=== PATIENT | male | born 1975 | race Two or more races ===

== ENCOUNTER 2016-10-22 12:31 | Inpatient (IN) | payer BC ==
--- NOTE | ~2016-10-22 | OP ---
Record Of Operation [facility] [address] [place]. [address] NAME: LEIGH MASSEY : 71 STATUS : ADM IN PAT#: [id number] AGE: 40 ADM/REG DATE : 10/22/16 MR#: [id number] REPORT SERV DATE: 10/25/16 DICTATED BY: HAMMAD PADGETT DATE: 10/24/16 REPORT STATUS : Draft TRANSCRIBED BY: MODL DATE: 10/24/16 DATE OF PROCEDURE: 10/24/2016 PREOPERATIVE DIAGNOSIS: Pulmonary embolism on anticoagulation. POSTOPERATIVE DIAGNOSIS: Pulmonary embolism on anticoagulation. PROCEDURE: Inferior vena cavogram with IVC filter placement. SURGEON: Hammad Padgett M.D. ANESTHESIA: Local with sedation. COMPLICATIONS: None. BLOOD LOSS: Minimal. HISTORY: The patient is a 40-year-old male admitted with a left lower extremity DVT. He was placed on therapeutic anticoagulation. He subsequently developed chest pain and CT scan noted pulmonary embolus. Based on this, it was felt he developed a new pulmonary embolus on therapeutic anticoagulation and is felt to be candidate for IVC filter placement. Risks, benefits, and alternatives were discussed in detail with the patient and , they expressed understanding and desired to proceed. DESCRIPTION OF PROCEDURE: The patient was taken to the operating room and placed in the supine position. He was given IV sedation without complication. Both groins were prepped and draped in sterile fashion. Ultrasound was used to identify common femoral vein on the right. Patency was confirmed with compression. 1% lidocaine was infiltrated in the skin and subcutaneous tissues. Under ultrasound guidance, an 18-gauge needle was placed into the common femoral vein. Wire was passed to the IVC which confirmed with fluoroscopy. The needle was removed. The sheath and dilator for the Ju filter were passed over the wire to the IVC. Vena cavogram was performed, it showed a normal sized vena cava without thrombus. The renal veins were identified. The sheath was passed up to just below the renal veins. The dilator was removed and the Ju filter passed to the distal aspect of the sheath. The filter was deployed beneath the renal veins without difficulty. There was no tilting. The struts were fully deployed. The sheath was then removed and pressure held, hemostasis was achieved. The patient tolerated the procedure well and will be taken to recovery room and back to his room for continued care. DIONE/KATINA Hammad Padgett M.D. Record Of Operation [address] [place]. [address] NAME: LEIGH MASSEY : 71 STATUS : ADM IN PAT#: [id number] AGE: 40 ADM/REG DATE : 10/22/16 MR#: [id number] REPORT SERV DATE: 10/25/16 DICTATED BY: HAMMAD PADGETT DATE: 10/24/16 REPORT STATUS : Draft TRANSCRIBED BY: KATINA DATE: 10/24/16 / [id number] CC: MD Yessy Horn
--- NOTE | ~2016-10-22 | CN ---
Consultation Report [facility] [address] [place]. [address] NAME: LEIGH MASSEY : 71 STATUS : ADM IN PAT#: [id number] AGE: 40 ADM/REG DATE : 10/22/16 MR#: [id number] REPORT SERV DATE: 10/25/16 DICTATED BY: ROYCE POLLOCK DATE: 10/25/16 REPORT STATUS : Draft TRANSCRIBED BY: MODEdmund DATE: 10/25/16 CONSULT DATE OF CONSULTATION: This is a patient admitted 10/22/2016, after he had a left lower extremity DVT discovered at [facility]. He had a subsequent CTA of the chest performed on 10/24/2016, showing moderate size pulmonary embolism in both lungs. The patient is currently on Xarelto. He did have to have an IVC filter placed by vascular surgery specifically Dr. Albin Padgett on 10/24/2016. We were consulted because of hemoptysis that really started today although he did a slight bout of it a couple of days ago. The amount that he is coughing up is 4 or 5 episodes of small volume hemoptysis, enough to fit in the palm of the hand. Hemoglobins really have not dropped all that much. His pulmonary embolism is an unprovoked event. No long car rides, trauma, history of cancers in him or family. He has no known clotting factors. He has no known hypercoagulable state. He does complain of some difficulty getting a full breath and he has a little bit of pleuritic chest pain on the right side. He was getting ready to be discharged today when he coughed up some blood. REVIEW OF SYSTEMS: No fevers, chills, or sweats. No syncope or dizziness. PAST MEDICAL HISTORY: Really unremarkable. ALLERGIES: FLEXERIL. HOME MEDICATIONS: None. PAST SURGICAL HISTORY: Skin biopsies and left groin hernia repair. SOCIAL HISTORY: No tobacco. Occasional alcohol but rare. . He does have kids. FAMILY HISTORY: Mother had cancer of the GI tract. Father and siblings are healthy. PHYSICAL EXAMINATION: VITAL SIGNS: Vitals per nursing flow sheet. GENERAL: No acute distress. Alert. NEUROLOGIC: GCS 15. HEENT: ENT normocephalic, atraumatic. Pupils are equal. NECK: Trachea midline. No palpable lymph nodes or masses. HEART: Regular rate and rhythm. No murmurs. LUNGS: Clear to auscultation bilaterally. No wheezes, rales, or rubs. Consultation Report [facility] [address]. [address] NAME: LEIGH MASSEY : 71 STATUS : ADM IN PAT#: [id number] AGE: 40 ADM/REG DATE : 10/22/16 MR#: [id number] REPORT SERV DATE: 10/25/16 DICTATED BY: ROYCE POLLOCK DATE: 10/25/16 REPORT STATUS : Draft TRANSCRIBED BY: MODEdmund DATE: 10/25/16 GI: Soft, nontender, and nondistended. EXTREMITIES: No edema, cyanosis, or clubbing. LABS: Radiology studies reviewed with my own interpretation. ASSESSMENT AND PLAN: 1. Acute unprovoked VTE-pulmonary embolism and left lower extremity DVT. 2. Hemoptysis-likely pulmonary infarction of the right lower lobe. 3. Pleuritic chest pain. Continue Xarelto for now as long as he is not having massive hemoptysis. We will watch overnight, get H and H in the morning. If the hemoptysis settles down or is minimal, then likely he will be able to be discharged. They did order factor V Leiden and prothrombin 2020 mutation. This ought to be followed up on. Protein S and protein C levels were not low on this admission but have anticoagulation for a minimum of 3 months to be re-evaluated for longer-term use or not. He will have to follow up with outpatient vascular surgery with Dr. Padgett to see about getting this IVC filter removed at some point in the future. CEP/MODL Royce Pollock DO / [id number] CC: MD Yessy Horn
--- NOTE | ~2016-10-22 | DS ---
Discharge Summary [facility] [address] [place]. [address] NAME: LEIGH MASSEY : 71 STATUS : ADM IN [facility]#: [id number] AGE: 40 ADM/REG DATE : 10/22/16 MR#: [id number] REPORT SERV DATE: 10/26/16 DICTATED BY: LEIGH STOVALL DATE: 10/25/16 REPORT STATUS : Draft TRANSCRIBED BY: MODL DATE: 10/25/16 ADMISSION DATE: 10/22/2016 DISCHARGE DATE: The patient is a 40-year-old male with no significant medical history, who presented to the emergency room with complaints of leg pain, diagnosed with a DVT, and referred to the emergency room. Upon presentation to the emergency room, the patient was admitted under Hospitalist Service and was started on therapeutic anticoagulation with Lovenox. The patient initially remained hemodynamically stable; however, during his hospital course, on the night of admission, the patient developed severe chest pain with tachycardia, prompting an emergent CTA, which confirmed bilateral pulmonary embolism. Given this finding, Vascular Surgery was consulted. For further details, please refer to op note dictated by Dr. Padgett on 10/25/2016. Status post IVC filter placement. The patient has remained hemodynamically stable on heparin drip. He is being transitioned to Xarelto. Given his hemodynamic stability clearance from Vascular Surgery, the patient will be discharged home to follow up with his primary care physician. Plan has been discussed with the patient, who voices understanding and is agreeable with this plan. DISCHARGE DIAGNOSES: 1. Bilateral pulmonary embolism. 2. Left lower extremity deep venous thrombosis. DISCHARGE EXAMINATION: VITAL SIGNS: Blood pressure 131/70, pulse of 88, respirations 22, O2 saturation 96% on nasal cannula. GENERAL: The patient is lying in bed, in no acute distress, appears stated age. HEENT: Normocephalic, atraumatic. Extraocular motors intact. Moist oral mucosa. Anicteric sclerae. No conjunctival pallor. NECK: Trachea midline and symmetric. No JVD. No thyromegaly. No lymphadenopathy palpated. CHEST: Nontender to palpation. No scars noted. CARDIOVASCULAR: Regular rate and rhythm. S1, S2. No murmurs, rubs, or gallops. LUNGS: Clear to auscultation bilaterally. No added breath sounds. ABDOMEN: Soft, flat, nontender, nondistended. No masses palpated. EXTREMITIES: No cyanosis, no clubbing, no edema. NEURO: Alert and oriented x3. No focal deficits appreciated. DISCHARGE MEDICATIONS: Xarelto 15 mg b.i.d. for 21 days, after which the patient will be transitioned to Xarelto 20 mg p.o. daily. DISPOSITION: The patient will be discharged home to follow up with primary care physician and Vascular Surgery. ACTIVITY: As tolerated. DIET: Regular diet. Discharge Summary [address] [address] NAME: LEIGH MASSEY : 71 STATUS : ADM IN PAT#: [id number] AGE: 40 ADM/REG DATE : 10/22/16 MR#: [id number] REPORT SERV DATE: 10/26/16 DICTATED BY: LEIGH STOVALL DATE: 10/25/16 REPORT STATUS : Draft TRANSCRIBED BY: KATINA DATE: 10/25/16 Greater than 30 minutes were spent coordinating care, planning discharge, providing counseling, dictation of note, medication reconciliation. LUCERO/KATINA Leigh Stovall MD / [id number] CC: MD Yessy Horn
--- NOTE | ~2016-10-22 | HP ---
History And Physical [place] [address] [place] [place]. [address] NAME: LEIGH MASSEY : 71 STATUS : ADM IN PAT#: [id number] AGE: 40 ADM/REG DATE : 10/22/16 MR#: [id number] REPORT SERV DATE: 10/22/16 DICTATED BY: MARTY BOWDEN DATE: 10/22/16 REPORT STATUS : Draft TRANSCRIBED BY: MODL DATE: 10/22/16 DATE OF ADMISSION: 10/22/2016 IDENTIFYING DATA: A 40-year-old white male whose PCP is Dr. Yessy Rae. CHIEF COMPLAINT: Deep vein thrombosis, left leg. HISTORY OF PRESENT ILLNESS: This history of present illness is obtained by talking directly with the patient as well as talking on the phone with Dr. Yessy Rae and reviewing the data she sent from [facility]. Seven days ago, the patient felt like he had an uncomfortable sensation behind his popliteal on the left side. He thought he might have pulled a muscle playing soccer the day before, but he does not remember any injury while playing soccer. The pain has gradually gotten worse. There has been more redness, heat, and sensitivity that worsened when he would stand. The pain began to extend down into the left calf and ankle. He went to see his primary care provider, and she sent him to [facility]. Their venous Doppler of that left leg revealed a deep vein thrombosis in the mid femoral vein extending to the popliteal vein and the posterior tibial vein stenosis. No cyst and no fluid collections. She called and asked for us to admit him to the hospital. The patient has no history of trauma to that leg. He has not been sedentary. He has had no long trips. He has no cancer history. He is on no prescriptions. He has no history of congestive heart failure. He has no family history of clotting disorder. He takes over-the counter vitamin C. He has never had a clot himself in the past. REVIEW OF SYSTEMS: On review of systems, he has gained about 15 pounds in the last year. He has occasional sweating episodes. He has had some nausea and he did vomit last Saturday. He states he had some dark gold colored urine a few days ago, but then it got special education educational assistant when he took more fluids. He has no fever, cough, nasal congestion, sore throat, chest pain, shortness of breath, abdominal pain, diarrhea, rectal bleeding, melena, dysuria, urinary hesitancy, nocturia, rash, tick bites, change in vision, and change in hearing. ALLERGIES: HE STATES HE IS ALLERGIC TO FLEXERIL, WHICH GIVES HIM HIVES AND FLU SHOT GAVE HIM FEVER. PAST MEDICAL HISTORY: He denies any history of diabetes, hypertension, asthma, COPD, heart disease, stroke, seizure, peptic ulcer, biliary tract disease, liver disease, chronic kidney disease, kidney stones, thyroid disease, cancer, or sleep apnea. The patient has a history of skin lesions on his right arm that were biopsied. He states they were fatty tissue. MEDICATIONS: No prescriptions. He does take some vitamin C. History And Physical [address] [address] NAME: LEIGH MASSEY : 71 STATUS : ADM IN [facility]#: [id number] AGE: 40 ADM/REG DATE : 10/22/16 MR#: [id number] REPORT SERV DATE: 10/22/16 DICTATED BY: MARTY BOWDEN DATE: 10/22/16 REPORT STATUS : Draft TRANSCRIBED BY: KATINA DATE: 10/22/16 SURGICAL HISTORY: He had skin biopsies and he had a left groin hernia repair. SOCIAL HISTORY: He denies tobacco intake. He states his alcohol intake maybe a sip per year. He has worked in the [employer] business. He works for [employer]. He is now involved in real estate. He is . He walks without any assistive device. FAMILY HISTORY: Mother reportedly had some type of cancer of GI tract. He does not know the details. Father and siblings are healthy. DIAGNOSTIC DATA: All that is available right now is that venous Doppler described above showing deep vein thrombosis in the left mid femoral, popliteal, and posterior tibial vein. PHYSICAL EXAMINATION: VITAL SIGNS: Temperature is 98.2, pulse 80, respirations 19, blood pressure 118/81, and O2 saturation 97% on room air. BMI is 24.9. He is 6 foot 5. GENERAL: Well-developed male, who appears at this time in no acute distress. HEENT: Head is atraumatic. Pupils are equal, round, and reactive to light. Extraocular motions are intact. No scleral icterus noted. Ears, externally unremarkable. No inflammatory changes. Normal hearing bilaterally. Nose, noninflamed externally. Septum midline. Nares patent. Mouth, moist. Good gag. No redness of the throat, gums, or lips. NECK: Supple. No lymph node or thyroid enlargement. The carotids have good pulses. No bruits. LUNGS: Clear. Good air flow. No wheezes, no rhonchi. Normal respiratory effort. HEART: Regular rate and rhythm without murmur, gallop, click, or rub. ABDOMEN: Bowel sounds positive. Soft, flat, nondistended, nontender. No masses. No organomegaly. I can feel the tip of the left spleen when he takes a deep breath. No bruits noted. EXTREMITIES: Warm. Good pulses. No clubbing. No cyanosis. He has edema of the left calf. He has erythema and increased warmth in the left calf and probably in the left distal thigh. He has some mild tenderness to palpation along the inner aspect of the left calf. Negative Homans sign. No other actively inflamed skin or joints. NEUROLOGIC: Alert, oriented, and cooperative with grossly normal mentation and speech as well as motor and sensory and gait. Cranial nerves 2 through 12 are normal. GENITORECTAL: Reveals normal external male genitalia. No testicular masses. No hernias. No lymphadenopathy in the groin. ASSESSMENT: 1. Acute unprovoked deep vein thrombosis, left lower extremity. 2. Negative past medical history, otherwise. PLAN: 1. Admit to the hospital on cardiac telemetry. 2. We will draw hypercoagulable labs because of his young age (less than age 45) and unprovoked DVT including protein S, protein C, antithrombin 3, factor V laden, prothrombin gene mutation [id number] and then after that start Lovenox 1 mg/kg subcu every 12 hours. 3. I talked with the patient at length about the options of warfarin versus the novel oral History And Physical [place] [address] [place]. [address] NAME: LEIGH MASSEY : 71 STATUS : ADM IN [facility]#: [id number] AGE: 40 ADM/REG DATE : 10/22/16 MR#: [id number] REPORT SERV DATE: 10/22/16 DICTATED BY: MARTY BOWDEN DATE: 10/22/16 REPORT STATUS : Draft TRANSCRIBED BY: MODEdmund DATE: 10/22/16 anticoagulants and the advantages and disadvantages of them, and we will check the co- pay for him as well. We are also going to get a urinalysis in this patient because he had that darker urine recently, and if I did not mention already, we are going to get a CT scan of his chest, abdomen, pelvis as a malignancy screen. We will get a stool guaiac. GALILEO/KATINA Marty Bowden M.D. / [id number] CC: Wolf Stearns
--- NOTE | ~2016-10-22 | DS ---
Discharge Summary [place] [id number] [place]. [address] NAME: LEIGH MASSEY : 71 STATUS : DIS IN PAT#: [id number] AGE: 40 ADM/REG DATE : 10/22/16 MR#: [id number] REPORT SERV DATE: 10/27/16 DICTATED BY: LEIGH STOVALL DATE: 10/27/16 REPORT STATUS : Draft TRANSCRIBED BY: MODEdmund DATE: 10/27/16 ADMISSION DATE: 10/22/2016 DISCHARGE DATE: 10/27/2016 ADDENDUM: This dictation is in addition to discharge summary dictated by nj on 10/25/2016, work #[id number]. The patient was discharged was not on 10/25/2016. At the time of discharge, the patient developed hemoptysis prompting Pulmonary consult. Dr. Pollock saw the patient. Per his evaluation, no need for any active intervention. His symptoms are most likely related secondary to his clot burden. Plan is for the patient to follow up with Pulmonary outpatient setting in about two to three weeks and also follow with Vascular Surgery. The patient has remained hemodynamically stable throughout this entire time and will be discharged today. All other information on the discharge summary remains the same. Greater than 30 minutes was spent coordinating care, providing counseling, dictation of the medication reconciliation. DIANNE Leigh Stovall MD / [id number] CC: MD Yessy Horn
[2016-10-22 15:10] LABS: BASOPHILS 0.4 %; BASOPHILS ABSOLUTE 0.03 10/3/uL (0.0-0.16); EOSINOPHILS 3.3 %; EOSINOPHILS ABSOLUTE 0.24 10/3/uL (0.0-0.53); HEMATOCRIT 45.6 % (40.0-51.0); HEMOGLOBIN 16.4 g/dL (13.6-17.8); IMMATURE GRANULOCYTES 0.1 %; IMMATURE GRANULOCYTES ABSOLUTE 0.01 10/3/uL (0.0-0.11); LYMPHOCYTES 21.4 %; LYMPHOCYTES ABSOLUTE 1.54 10/3/uL (0.67-4.30); MEAN CORPUSCULAR HEMOGLOB 31.3 pg (26.0-34.0); MEAN PLATELET VOLUME 9.3 fL (9.2-13.0); MONOCYTES 5.1 %; MONOCYTES ABSOLUTE 0.37 10/3/uL (0.21-1.20); NEUTROPHILS 69.7 %; NEUTROPHILS ABSOLUTE 5.02 10/3/uL (2.02-8.40); PLATELET COUNT 228 10/3/uL (150-400); RBC DISTRIBUTION WIDTH 12.2 % (12.0-16.0); RED CELL COUNT 5.24 10/6/uL (4.7-6.1); WHITE BLOOD CELLS 7.2 10/3/uL (4.5-10.5)
[2016-10-22 15:12] LABS: MANUAL DIFF NO %
[2016-10-22] MEDS ORDERED: VITC500 PO (15:12)
[2016-10-22] MEDS ORDERED: ADVIL PO (15:13)
[2016-10-22] MEDS ORDERED: ACET500CAP PO (15:13)
[2016-10-22 15:15] LABS: PARTIAL THROMBO TIME 27.1 SEC (22.5-37.2); PROTIME (NOT ORD) 13.4 SEC (12.0-14.5)
[2016-10-22 15:34] LABS: A/G RATIO 0.9 (0.7-1.9); ALBUMIN 3.8 G/DL (3.5-5.0); ALKALINE PHOSPHATASE 88 U/L (45-117); BUN (BLOOD UREA NITROGEN) 15 MG/DL (6-23); CALCIUM, SERUM 8.8 MG/DL (8.5-10.4); CHLORIDE, SERUM 106 MMOL/L (96-112); CO2 (CARBON DIOXIDE) 28 MMOL/L (24-34); CREATININE 0.89 MG/DL (0.70-1.30); GFR AFRICAN AMERICAN 122 ML/MIN (>=60); GFR NON AFRICAN AMERICAN 105 ML/MIN (>=60); GLOBULIN 4.2 G/DL (2.5-4.1); GLUCOSE, SERUM 89 MG/DL (60-99); POTASSIUM, SERUM 3.8 MMOL/L (3.5-5.3); SGOT(AST) 47 U/L (5-40); SGPT(ALT) 48 U/L (5-65); SODIUM, SERUM 143 MMOL/L (135-148); TOTAL BILIRUBIN 0.5 MG/DL (0-1.2)
[2016-10-22 16:24] LABS: ANTITHROMBIN 3 ACTIVITY 131 % (80-121)
[2016-10-22 20:34] LABS: ASCORBIC ACID (UR NOT ORDER) NEG (NEG); BILIRUBIN, URINE NEGATIVE (NEG); KETONE, URINE NEGATIVE (NEG); LEUKOCYTE ESTERASE(NOT OR NEG (NEG); WBC (NOT ORDERED) (RFLEX) 1 (0-5)
[2016-10-24 00:50] LABS: BASOPHILS 0.3 %; BASOPHILS ABSOLUTE 0.02 10/3/uL (0.0-0.16); EOSINOPHILS 2.9 %; EOSINOPHILS ABSOLUTE 0.23 10/3/uL (0.0-0.53); HEMATOCRIT 43.8 % (40.0-51.0); HEMOGLOBIN 15.5 g/dL (13.6-17.8); IMMATURE GRANULOCYTES 0.1 %; IMMATURE GRANULOCYTES ABSOLUTE 0.01 10/3/uL (0.0-0.11); LYMPHOCYTES 20.4 %; LYMPHOCYTES ABSOLUTE 1.61 10/3/uL (0.67-4.30); MEAN CORPUS HGB CONC 35.4 g/dL (32.0-36.0); MEAN CORPUSCULAR HEMOGLOB 30.9 pg (26.0-34.0); MEAN CORPUSCULAR VOLUME 87.3 fL (80-100); MEAN PLATELET VOLUME 8.9 fL (9.2-13.0); MONOCYTES 6.9 %; MONOCYTES ABSOLUTE 0.54 10/3/uL (0.21-1.20); NEUTROPHILS 69.4 %; NEUTROPHILS ABSOLUTE 5.47 10/3/uL (2.02-8.40); PLATELET COUNT 194 10/3/uL (150-400); RED CELL COUNT 5.02 10/6/uL (4.7-6.1); WHITE BLOOD CELLS 7.9 10/3/uL (4.5-10.5)
[2016-10-24 00:51] LABS: MANUAL DIFF NO %
[2016-10-24 01:05] LABS: A/G RATIO 0.9 (0.7-1.9); ALBUMIN 3.4 G/DL (3.5-5.0); ALKALINE PHOSPHATASE 84 U/L (45-117); BUN (BLOOD UREA NITROGEN) 17 MG/DL (6-23); CHLORIDE, SERUM 103 MMOL/L (96-112); CHOL/HDL RATIO(NOT ORDER) 6.7 (0-5); CHOLESTEROL 168 MG/DL (< 200); CO2 (CARBON DIOXIDE) 28 MMOL/L (24-34); CREATININE 0.98 MG/DL (0.70-1.30); GFR AFRICAN AMERICAN 110 ML/MIN (>=60); GFR NON AFRICAN AMERICAN 95 ML/MIN (>=60); GLOBULIN 3.6 G/DL (2.5-4.1); GLUCOSE, SERUM 105 MG/DL (60-99); HDL CHOLESTEROL 25 MG/DL (> 39); LDL CHOLESTEROL 84 MG/DL (< 130); NON-HDL CHOLESTEROL 143 MG/DL (< 160); SGOT(AST) 47 U/L (5-40); SGPT(ALT) 55 U/L (5-65); SODIUM, SERUM 138 MMOL/L (135-148); TOTAL BILIRUBIN 0.6 MG/DL (0-1.2); TRIGLYCERIDE 296 MG/DL (< 150)
[2016-10-24 08:28] LABS: ALLENS TEST Pos; BE (BASE EXCESS) -2.4 MEQ/L (0 +/- 2.5); CARBOXYHEMOGLOBIN 0.8 % (0-3); DEVICE NC; HCO3 (ACTUAL BICARBONATE) 21.6 MEQ/L (23-27); HEMOBLOGIN CONTENT 15.9 G/DL (14-18); INSTRUMENT SERIAL # 8083; METHEMOGLOBIN 0.3 % (0-3); O2 CONTENT 21.8 VOL% (18-24); PCO2 (CO2 TENSION) 36 MMHG (35-45); PO2 (O2 TENSION) 106 MMHG (79-93); SAMPLE Arterial
[2016-10-25 01:40] LABS: BASOPHILS 0.1 %; BASOPHILS ABSOLUTE 0.01 10/3/uL (0.0-0.16); EOSINOPHILS 0.5 %; EOSINOPHILS ABSOLUTE 0.05 10/3/uL (0.0-0.53); HEMATOCRIT 39.4 % (40.0-51.0); IMMATURE GRANULOCYTES 0.4 %; IMMATURE GRANULOCYTES ABSOLUTE 0.04 10/3/uL (0.0-0.11); LYMPHOCYTES 12.3 %; LYMPHOCYTES ABSOLUTE 1.18 10/3/uL (0.67-4.30); MEAN CORPUS HGB CONC 35.5 g/dL (32.0-36.0); MEAN CORPUSCULAR HEMOGLOB 30.7 pg (26.0-34.0); MEAN CORPUSCULAR VOLUME 86.4 fL (80-100); MEAN PLATELET VOLUME 8.8 fL (9.2-13.0); MONOCYTES 6.1 %; MONOCYTES ABSOLUTE 0.58 10/3/uL (0.21-1.20); NEUTROPHILS 80.6 %; PLATELET COUNT 178 10/3/uL (150-400); RBC DISTRIBUTION WIDTH 12.2 % (12.0-16.0); RED CELL COUNT 4.56 10/6/uL (4.7-6.1); WHITE BLOOD CELLS 9.6 10/3/uL (4.5-10.5)
[2016-10-25 01:41] LABS: MANUAL DIFF NO %
[2016-10-25 01:56] LABS: A/G RATIO 0.8 (0.7-1.9); ALBUMIN 3.2 G/DL (3.5-5.0); ALKALINE PHOSPHATASE 78 U/L (45-117); CALCIUM, SERUM 8.2 MG/DL (8.5-10.4); CHLORIDE, SERUM 99 MMOL/L (96-112); CO2 (CARBON DIOXIDE) 27 MMOL/L (24-34); CREATININE 0.78 MG/DL (0.70-1.30); GFR AFRICAN AMERICAN 129 ML/MIN (>=60); GFR NON AFRICAN AMERICAN 111 ML/MIN (>=60); GLOBULIN 3.9 G/DL (2.5-4.1); GLUCOSE, SERUM 123 MG/DL (60-99); POTASSIUM, SERUM 3.5 MMOL/L (3.5-5.3); SGOT(AST) 70 U/L (5-40); SGPT(ALT) 72 U/L (5-65); SODIUM, SERUM 134 MMOL/L (135-148); TOTAL PROTEIN 7.1 G/DL (6.0-8.5)
[2016-10-25 02:04] LABS: BUN (BLOOD UREA NITROGEN) 12 MG/DL (6-23)
[2016-10-25 13:43] LABS: PROTEIN C ACTIVITY 163 % (70-145); PROTEIN S ACTIVITY 108 % (69-161)
[2016-10-27 05:36] LABS: HEMATOCRIT 41.6 % (40.0-51.0); HEMOGLOBIN 14.1 g/dL (13.6-17.8); MEAN CORPUS HGB CONC 33.9 g/dL (32.0-36.0); MEAN CORPUSCULAR HEMOGLOB 29.8 pg (26.0-34.0); MEAN CORPUSCULAR VOLUME 87.9 fL (80-100); MEAN PLATELET VOLUME 9.9 fL (9.2-13.0); PLATELET COUNT 224 10/3/uL (150-400); RBC DISTRIBUTION WIDTH 12.3 % (12.0-16.0); RED CELL COUNT 4.73 10/6/uL (4.7-6.1)
[2016-10-27 05:39] LABS: MANUAL DIFF YES %
[2016-10-27 05:57] LABS: A/G RATIO 0.7 (0.7-1.9); BUN (BLOOD UREA NITROGEN) 14 MG/DL (6-23); CALCIUM, SERUM 8.4 MG/DL (8.5-10.4); CHLORIDE, SERUM 103 MMOL/L (96-112); CO2 (CARBON DIOXIDE) 26 MMOL/L (24-34); CREATININE 0.96 MG/DL (0.70-1.30); GFR AFRICAN AMERICAN 113 ML/MIN (>=60); GFR NON AFRICAN AMERICAN 97 ML/MIN (>=60); GLOBULIN 4.2 G/DL (2.5-4.1); SGPT(ALT) 93 U/L (5-65); SODIUM, SERUM 138 MMOL/L (135-148); TOTAL BILIRUBIN 0.6 MG/DL (0-1.2); TOTAL PROTEIN 7.2 G/DL (6.0-8.5)
[2016-10-27 06:05] LABS: ALKALINE PHOSPHATASE 98 U/L (45-117); GLUCOSE, SERUM 98 MG/DL (60-99); POTASSIUM, SERUM 4.4 MMOL/L (3.5-5.3)
[2016-10-27 06:07] LABS: SGOT(AST) 75 U/L (5-40)
[2016-10-27 07:53] LABS: BAND NEUTROPHILS 2 %; LYMPHOCYTES 13 %; LYMPHOCYTES ABSOLUTE (CALC) 1.17 10/3/uL (0.67-4.30); MONOCYTES 4 %; MONOCYTES ABSOLUTE (CALC) 0.36 10/3/uL (0.21-1.20); NEUTROPHILS ABSOLUTE (CALC) 7.47 10/3/uL (2.02-8.40); PLATELET ESTIMATE ADQ (ADEQUATE); RBC MORPHOLOGY NORM (NORMAL); SEGMENTED NEUTROPHIL (0) 81 %; TOTAL NUCLEATED CELLS 100
[2016-10-27] MEDS ORDERED: XARELTO15 MG PO (10:53)
[2016-10-27] MEDS ORDERED: PCET PO (10:56)
[2016-10-27] MEDS ORDERED: SILTUSSIN100 MG/5 M PO (10:58)
== END 2016-10-27 13:55 | disposition home or self-care (01) | DRG 252 ==
LOC: 2SO 12:31
PROVIDERS: Hospitalist
PROC: 06H03DZ Insertion of Intraluminal Device into Inferior Vena Cava, Percutaneous Approach (ICD-10-PCS; principal; 2016-10-22)
PROC: B549ZZA Ultrasonography of Inferior Vena Cava, Guidance (ICD-10-PCS; 2016-10-22)
DX: I82.4Z2 Acute embolism and thrombosis of unspecified deep veins of left distal lower extremity (principal); I26.99 Other pulmonary embolism without acute cor pulmonale; R04.2 Hemoptysis; I10 Essential (primary) hypertension; Z79.01 Long term (current) use of anticoagulants; Z85.00 Personal history of malignant neoplasm of unspecified digestive organ; Z88.8 Allergy status to other drugs, medicaments and biological substances; Z98.890 Other specified postprocedural states
CPT/HCPCS: 36600; 71260; 71275; 74177; 80053; 80061; 81001; 81240; 81241; 82272; 82805; 83036; 84443; 85025; 85300; 85303; 85306; 85610; 85730; 93005; A9270-GY; C1769; C1880; C1894; C8929; J2250; J3010; Q9957; Q9966; Q9967